=== PATIENT | female | born 1995 | race Caucasian/White ===

== ENCOUNTER 2018-08-10 08:39 | Emergency (ER) | payer MEDICAID ==
[2018-08-10] MEDS ORDERED: Cephalexin 500 MG Cap PO ONE (09:09)
--- NOTE | 2018-08-10 09:14 | EDM.PDOC ---
ED HPI GENERAL MEDICAL PROBLEM - General Chief Complaint: Bite:Animal, Insect Stated Complaint: BEE STING Time Seen by Provider: 08/10/18 09:09 Source of Information: Reports: Patient History Limitations: Reports: No Limitations - History of Present Illness INITIAL COMMENTS - FREE TEXT/NARRATIVE: Patient was stung by a wasp on left upper arm yesterday morning, redness has expanded today. Area is painful, not pruritic. Has been taking Benadryl. Currently 12 weeks . Denies fever. Onset Date: 08/09/18 Location: Reports: Upper Extremity, Left Quality: Reports: Ache Severity: Moderate Associated Symptoms: Reports: Headaches - Related Data Allergies Allergy/AdvReac Type Severity Reaction Status Date / Time No Known Allergies Allergy Verified 08/10/18 08:53 Home Meds: Home Meds Cephalexin [Keflex] 500 mg PO QID #40 capsule 08/10/18 [Rx] [id number]/Iron Fumarate/FA/DSS [ 19 Tablet] 1 tab PO DAILY 08/10/18 [ History] Past Medical History - Past Health History Medical/Surgical History: Denies Medical/Surgical History Social & Family History - Family History Family Medical History: Noncontributory - Tobacco Use Smoking Status *Q: Current Every Day Smoker Tobacco Use Within Last Twelve Months: Cigarettes Years of Tobacco use: 5 Packs/Tins Daily: 0.5 - Caffeine Use Caffeine Use: Reports: Soda - Recreational Drug Use Recreational Drug Use: No ED ROS GENERAL - Review of Systems Review Of Systems: ROS reveals no pertinent complaints other than HPI. ED EXAM, ANIMAL BITE - Physical Exam Exam: See Below Exam Limited By: No Limitations General Appearance: Alert, WD/WN, No Apparent Distress Ears: Normal External Exam Nose: Normal Inspection Throat/Mouth: No Airway Compromise Head: Atraumatic Neck: Full Range of Motion Respiratory/Chest: No Respiratory Distress Peripheral Pulses: 2+: Radial (L) Extremities: Normal Range of Motion, Other (erythema, induration, warmth and tenderness to left upper arm, no fluctuance) Neurological: Alert, No Motor/Sensory Deficits Psychiatric: Normal Affect, Normal Mood Course - Vital Signs Last Recorded V/S: Last Vital Signs Temp 36.7 C 08/10/18 08:45 Pulse 80 08/10/18 08:45 Resp 18 08/10/18 08:45 BP 111/65 08/10/18 08:45 Pulse Ox 98 08/10/18 08:45 - Orders/Labs/Meds Orders: Active Orders 24 hr Category Date Time Status cephALEXin [Keflex] Med 08/10/18 09:09 Once 500 mg PO ONETIME ONE Departure - Departure Time of Disposition: 09:14 Disposition: Home, Self-Care 01 Condition: Good Clinical Impression: Cellulitis Qualifiers: Site of cellulitis: extremity Site of cellulitis of extremity: upper extremity Laterality: left Qualified Code(s): L03.114 - Cellulitis of left upper limb Wasp sting Qualifiers: Encounter type: initial encounter Injury intent: accidental or unintentional Qualified Code(s): T63.461A - Toxic effect of venom of wasps, accidental ( unintentional), initial encounter - Discharge Information *PRESCRIPTION DRUG MONITORING PROGRAM REVIEWED*: No *COPY OF PRESCRIPTION DRUG MONITORING REPORT IN PATIENT MALIK: Not Applicable Prescriptions: Cephalexin [Keflex] 500 mg PO QID #40 capsule Instructions: Cellulitis, Adult, [id number], Bee, Wasp, or Hornet Sting, Adult Additional Instructions: Fill prescription for Keflex and take as directed. Take OTC Tylenol and Benadryl as needed. Follow up with your primary physician in 2 days if symptoms don't improve. Return to the ER if symptoms worsen. - My Orders Last 24 Hours: My Active Orders 08/10/18 09:09 cephALEXin [Keflex] 500 mg PO ONETIME ONE - Assessment/Plan Last 24 Hours: My Active Orders 08/10/18 09:09 cephALEXin [Keflex] 500 mg PO ONETIME ONE
== END 2018-08-10 09:31 | disposition home or self-care (01) ==
LOC: FB.ED 08:39
DX: T63.461A Toxic effect of venom of wasps, accidental (unintentional), initial encounter (principal); L03.114 Cellulitis of left upper limb; F17.210 Nicotine dependence, cigarettes, uncomplicated
CPT/HCPCS: 99281; A9270; 99284

== ENCOUNTER 2018-08-10 14:23 | Emergency (ER) | payer MEDICAID ==
[2018-08-10] MEDS ORDERED: cefTRIAXone 1,000 MG VIAL IVPUSH ONE (14:35)
--- NOTE | 2018-08-10 14:40 | EDM.PDOC ---
ED HPI GENERAL MEDICAL PROBLEM - General Chief Complaint: Skin Complaint Stated Complaint: reaction Time Seen by Provider: 08/10/18 14:36 Source of Information: Reports: Patient History Limitations: Reports: No Limitations - History of Present Illness INITIAL COMMENTS - FREE TEXT/NARRATIVE: Patient sustained a wasp sting to DEIRDRE yesterday, developed a painful rash which has continued to enlarge. She was treated in the ED this morning, rash has worsened since then and now having pain to left shoulder and numbness overlying rash. Denies fever. Currently 12 weeks . Duration: Day(s): (2) Location: Reports: Upper Extremity, Left Severity: Moderate left inner arm Pain Score (Numeric/FACES): 5 - Related Data Allergies Allergy/AdvReac Type Severity Reaction Status Date / Time No Known Allergies Allergy Verified 08/10/18 15:16 Home Meds: Home Meds Cephalexin [Keflex] 500 mg PO QID #40 capsule 08/10/18 [Rx] [id number]/Iron Fumarate/FA/DSS [ 19 Tablet] 1 tab PO DAILY 08/10/18 [ History] Past Medical History - Past Health History Medical/Surgical History: Denies Medical/Surgical History Social & Family History - Family History Family Medical History: Noncontributory - Tobacco Use Smoking Status *Q: Current Every Day Smoker Tobacco Use Within Last Twelve Months: Cigarettes - Caffeine Use Caffeine Use: Reports: Soda ED ROS GENERAL - Review of Systems Review Of Systems: See Below ED EXAM, SKIN/RASH Exam: See Below Exam Limited By: No Limitations General Appearance: Alert, WD/WN, No Apparent Distress Ears: Normal External Exam Nose: Normal Inspection Throat/Mouth: No Airway Compromise Head: Atraumatic, Normocephalic Neck: Full Range of Motion Respiratory/Chest: No Respiratory Distress, Lungs Clear Cardiovascular: Regular Rate, Rhythm, No Murmur Peripheral Pulses: 2+: Radial (L) Extremities: Normal Range of Motion, Other (Enlarging area of erythema and induration to left upper arm w/o fluctuance) Neurological: Alert, Oriented, Normal Cognition, Other (decreased sensation light touch overlying LUE rash, motor intact) Skin: Other (as above) Course - Orders/Labs/Meds Orders: Active Orders 24 hr Category Date Time Status Sodium Chloride 0.9% [Saline Flush] Med 08/10/18 14:34 Active 10 ml FLUSH ASDIRECTED PRN Saline Lock Insert [OM.PC] Routine Oth 08/10/18 14:34 Ordered Medication Orders Sodium Chloride (Saline Flush) 10 ml FLUSH ASDIRECTED PRN PRN Reason: Keep Vein Open Last Admin: 08/10/18 15:01 Dose: 10 ml Admin: 08/10/18 14:50 Dose: 10 ml Labs: Laboratory Tests 08/10/18 08/10/18 08/10/18 Range/Units 14:55 14:55 14:55 WBC 11.4 (4.5-12.0) X10-3/uL RBC 3.90 (3.23-5.20) x10(6)uL Hgb 12.9 (11.5-15.5) g/dL Hct 36.6 (30.0-51.3) % MCV 93.7 (80-96) fL MCH 33.0 (27.7-33.6) pg MCHC 35.2 (32.2-35.4) g/dL RDW 12.6 (11.5-15.5) % Plt Count 303 (125-369) X10(3)uL MPV 8.9 (7.4-10.4) fL Neut % (Auto) 66.3 (46-82) % Lymph % (Auto) 25.3 (13-37) % [place] % (Auto) 5.7 (4-12) % Eos % (Auto) 2 (1.0-5.0) % Baso % (Auto) 0 (0-2) % Neut # (Auto) 7.6 (1.6-8.3) # Lymph # (Auto) 2.9 (0.6-5.0) # [place] # (Auto) 0.6 (0.0-1.3) # Eos # (Auto) 0.3 (0.0-0.8) # Baso # (Auto) 0.0 (0.0-0.2) # Sodium 136 (135-145) mmol/L Potassium 3.7 (3.5-5.3) mmol/L Chloride 101 (100-110) mmol/L Carbon Dioxide 24 (21-32) mmol/L BUN 7 (7-18) mg/dL Creatinine 0.5 L (0.55-1.02) mg/dL Est Cr Clr Drug Dosing TNP Estimated GFR (MDRD) > 60 (>60) BUN/Creatinine Ratio 14.0 (9-20) Glucose 84 (80-116) mg/dL Calcium 8.4 L (8.6-10.2) mg/dL Total Bilirubin 0.2 (0.1-1.3) mg/dL AST 12 (5-25) IU/L ALT 18 (12-36) U/L Alkaline Phosphatase 67 (56-112) IU/L C-Reactive Protein 0.4 L (0.5-0.9) mg/dL Total Protein 7.1 (6.0-8.0) g/dL Albumin 3.4 L (3.5-5.2) g/dL Globulin 3.7 g/dL Albumin/Globulin Ratio 0.9 Meds: Medications Generic Name Dose Route Start Last Admin Trade Name Freq PRN Reason Stop Dose Admin Sodium Chloride 10 ml 08/10/18 14:34 08/10/18 15:01 Saline Flush FLUSH 10 ml ASDIRECTED PRN Administration Keep Vein Open Discontinued Medications Generic Name Dose Route Start Last Admin Trade Name Freq PRN Reason Stop Dose Admin Ceftriaxone Sodium 1,000 mg 08/10/18 14:35 08/10/18 14:54 Rocephin IVPUSH 08/10/18 14:36 1,000 mg ONETIME ONE Administration - Re-Assessments/Exams Free Text/Narrative Re-Assessment/Exam: 08/10/18 14:53 CBC and CRP normal. Etiology of rash likely due large local reaction to wasp sting and less likely cellulitis. Departure - Departure Time of Disposition: 15:57 Disposition: Home, Self-Care 01 Condition: Good Clinical Impression: Wasp sting Qualifiers: Encounter type: initial encounter Injury intent: accidental or unintentional Qualified Code(s): T63.461A - Toxic effect of venom of wasps, accidental ( unintentional), initial encounter Cellulitis Qualifiers: Site of cellulitis: extremity Site of cellulitis of extremity: upper extremity Laterality: left Qualified Code(s): L03.114 - Cellulitis of left upper limb - Discharge Information *PRESCRIPTION DRUG MONITORING PROGRAM REVIEWED*: No *COPY OF PRESCRIPTION DRUG MONITORING REPORT IN PATIENT MALIK: Not Applicable Instructions: Cellulitis, Adult, Bee, Wasp, or Hornet Sting, Adult Referrals: Jeffrey Martinez MD [Primary Care Provider] - Forms: ED Department Discharge Additional Instructions: Continue Keflex as prescribed. Take OTC Tylenol or Benadryl as needed. Follow up with your primary physician 2 days. Return to the ER as needed. - My Orders Last 24 Hours: My Active Orders 08/10/18 14:34 Sodium Chloride 0.9% [Saline Flush] 10 ml FLUSH ASDIRECTED PRN Saline Lock Insert [OM.PC] Routine - Assessment/Plan Last 24 Hours: My Active Orders 08/10/18 14:34 Sodium Chloride 0.9% [Saline Flush] 10 ml FLUSH ASDIRECTED PRN Saline Lock Insert [OM.PC] Routine
[2018-08-10] MEDS: Sodium Chloride 0.9% 10 ML Syringe FLUSH PRN ×2 (14:50→15:01)
== END 2018-08-10 16:12 | disposition home or self-care (01) ==
LOC: FB.ED 14:23
DX: O9A.211 Injury, poisoning and certain other consequences of external causes complicating pregnancy, first trimester (principal); T63.461A Toxic effect of venom of wasps, accidental (unintentional), initial encounter; L03.114 Cellulitis of left upper limb; F17.210 Nicotine dependence, cigarettes, uncomplicated; Z3A.12 12 weeks gestation of pregnancy
CPT/HCPCS: 36415; 80053; 85025; 86140; 96374; 99283; J0696; J7050

== ENCOUNTER 2020-04-13 09:52 | Emergency (ER) | payer MEDICAID, SELFPAY ==
--- NOTE | 2020-04-13 10:18 | EDM.PDOC ---
ED HPI GENERAL MEDICAL PROBLEM - General Stated Complaint: INFECTION OF TEETH Time Seen by Provider: 04/13/20 10:15 Source of Information: Reports: Patient History Limitations: Reports: No Limitations - History of Present Illness INITIAL COMMENTS - FREE TEXT/NARRATIVE: 24-year-old female who reports that for the past 2 weeks she has had pain in multiple teeth on both the right and the left side. This pain has gotten progressively worse with time and now she finds it difficult even to drink cold liquids or to chew because of the pain in both the left upper and left lower and the right lower teeth. She also has noticed some swelling in the area around the teeth. She rates pain as a 10/10. It is sharp and throbbing-type pain. There is no radiation of the pain. She also has had nausea with vomiting 2 today. She has been able to drink liquids. She is 27 weeks now and reports no vaginal bleeding or discharge. She has had feelings of good movement. No abdominal pain. No trouble breathing. There are no other associated signs or symptoms. There are no other modifying factors. Onset: Other (2 weeks) Duration: Getting Worse Location: Reports: Face (Dental pain) Quality: Reports: Sharp, Throbbing Severity: Severe Improves with: Reports: None Worsens with: Reports: Other (Cold water or air hitting the teeth. 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 (see below) (Nothing) - Related Data Allergies Allergy/AdvReac Type Severity Reaction Status Date / Time Penicillins Allergy Hives Verified 04/13/20 10:19 Home Meds: Home Meds Prenat 115/Iron Fum/Folic/Dss [ 19 Tablet] 1 tab PO DAILY 08/10/18 [ History] Albuterol [Ventolin HFA] 2 puff .XX DAILY 04/13/20 [History] Promethazine [Phenergan] 25 mg PO Q6H PRN #16 tab 04/13/20 [Rx] cephALEXin [Keflex] 500 mg PO QID 10 Days #40 cap 04/13/20 [Rx] Past Medical History Respiratory History: Reports: Asthma CAD 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: : 6 Para: 1 (3 miscarriages and one stillbirth at 27 weeks gestation) - Past Surgical History Female Surgical History: Reports: Section, D&C Social & Family History - Tobacco Use Smoking Status *Q: Current Every Day Smoker - Caffeine Use Caffeine Use: Reports: Soda - Alcohol Use Alcohol Use History: No - Living Situation & Occupation Living situation: Reports: Other (She just recently moved here from [place].) ED ROS ENT - Review of Systems Review Of Systems: See Below Constitutional: Reports: No Symptoms HEENT: Reports: Dental Pain Respiratory: Reports: No Symptoms Cardiovascular: Reports: No Symptoms GI/Abdominal: Reports: Nausea, Vomiting Musculoskeletal: Reports: No Symptoms Skin: Reports: No Symptoms Neurological: Reports: No Symptoms Psychiatric: Reports: No Symptoms Hematologic/Lymphatic: Reports: No Symptoms Immunologic: Reports: No Symptoms ED EXAM, ENT - Physical Exam Exam: See Below Exam Limited By: No Limitations General Appearance: Alert, WD/WN, Mild Distress (Appears in some pain) Eye Exam: Bilateral Eye: EOMI, Normal Inspection, PERRL Ears: Normal External Exam, Hearing Grossly Normal Nose: Normal Inspection, Normal Mucousa, No Blood Mouth/Throat: Dental Pain, Dental Tenderness, Gum Swelling (No pointing abscess) , Other (Moist membranes) Head: Atraumatic, Normocephalic Neck: Normal Inspection, Supple, Non-Tender, Full Range of Motion Respiratory/Chest: No Respiratory Distress, Lungs Clear, Normal Breath Sounds, No Accessory Muscle Use, Chest Non-Tender Cardiovascular: Normal Peripheral Pulses, No Murmur, Tachycardia GI/Abdominal: Normal Bowel Sounds, Soft, Non-Tender, Other (Gravid with no uterine tenderness.) Back: Normal Inspection Extremities: Normal Inspection, Normal Range of Motion, Non-Tender, No Pedal Edema, Normal Capillary Refill Neurological: Alert, Oriented, CN II-XII Intact, Normal Cognition, No Motor/ Sensory Deficits Psychiatric: Normal Affect Skin: Warm, Dry, Intact, Normal Color, No Rash Course - Vital Signs Last Recorded V/S: Last Vital Signs Temp 36.6 C 04/13/20 09:55 Pulse 110 H 04/13/20 09:55 Resp 20 04/13/20 09:55 BP 108/53 L 04/13/20 09:55 Pulse Ox 99 04/13/20 09:55 - Re-Assessments/Exams Free Text/Narrative Re-Assessment/Exam: 04/13/20 10:30: Patient with gingival swelling and carious dentition with probable dental abscess. I will place the patient on Keflex for treatment of her dental infection (she has had this medication before for a dental infection and had no problems taking it). She has been urged to see a dentist. Departure - Departure Time of Disposition: 10:37 Disposition: Home, Self-Care 01 Condition: Good Clinical Impression: Pain, dental, Dental caries, Dental infection - Discharge Information Prescriptions: cephALEXin [Keflex] 500 mg PO QID 10 Days #40 cap Promethazine [Phenergan] 25 mg PO Q6H PRN #16 tab PRN Reason: Nausea/Vomiting Instructions: Dental Abscess, [id number] Referrals: PCP,Not In Area [Primary Care Provider] - Additional Instructions: You appear to have a dental infection. I did not see a definite pointing abscess but there could be a dental abscess associated with one of the teeth that are painful. Drink plenty of fluids. You may take Tylenol 1000 mg by mouth every 6 hours as needed for pain. Medication as prescribed (Keflex 500 mg, promethazine 25 mg). Follow-up with a dentist as soon as you can arrange. The emergency department for inability to swallow, trouble breathing, high fever or any other concerning sign or symptom. Sepsis Event Note - Focused Exam Vital Signs: Vital Signs Temp Pulse Resp BP Pulse Ox 04/13/20 09:55 36.6 C 110 H 20 108/53 L 99 Date Exam was Performed: 04/13/20 Time Exam was Performed: 10:27
== END 2020-04-13 11:10 | disposition home or self-care (01) ==
LOC: FB.ED 09:52
DX: O99.612 Diseases of the digestive system complicating pregnancy, second trimester (principal); K04.7 Periapical abscess without sinus; K02.9 Dental caries, unspecified; O99.512 Diseases of the respiratory system complicating pregnancy, second trimester; O99.332 Smoking (tobacco) complicating pregnancy, second trimester; J45.909 Unspecified asthma, uncomplicated; F17.200 Nicotine dependence, unspecified, uncomplicated; Z88.0 Allergy status to penicillin; Z79.899 Other long term (current) drug therapy; Z3A.27 27 weeks gestation of pregnancy
CPT/HCPCS: 99282

== ENCOUNTER 2020-05-16 03:19 | Emergency (ER) | payer MEDICAID ==
--- NOTE | 2020-05-16 03:35 | EDM.PDOC ---
ED HPI GENERAL MEDICAL PROBLEM - General Stated Complaint: CONTRACTIONS Time Seen by Provider: 05/16/20 03:30 Source of Information: Reports: Patient History Limitations: Reports: No Limitations - History of Present Illness INITIAL COMMENTS - FREE TEXT/NARRATIVE: Gertrudis was brought in by EMS for contractions,that started at about 230 am. They are mildly painful,and irregular. She was scared to travel to [facility] by herself. No vaginal bleeding or discharge.She is at 34 weeks gestation Upper Abdomen Pain Score (Numeric/FACES): 4 - Related Data Allergies Allergy/AdvReac Type Severity Reaction Status Date / Time Penicillins Allergy Hives Verified 04/13/20 10:19 Home Meds: Home Meds Prenat 115/Iron Fum/Folic/Dss [ 19 Tablet] 1 tab PO DAILY 08/10/18 [History] Albuterol [Ventolin HFA] 2 puff .XX DAILY 04/13/20 [History] Promethazine [Phenergan] 25 mg PO Q6H PRN #16 tab 04/13/20 [Rx] cephALEXin [Keflex] 500 mg PO QID 10 Days #40 cap 04/13/20 [Rx] Past Medical History - Past Health History Medical/Surgical History: Denies Medical/Surgical History Respiratory History: Reports: Asthma 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 ED EXAM - Physical Exam Exam: See Below Exam Limited By: No Limitations General Appearance: Alert, No Apparent Distress Ears: Normal External Exam Nose: Normal Inspection Head: Atraumatic GI/Abdominal Exam: Normal Bowel Sounds, Soft Fundal Height In cm: 34 Course - Vital Signs Last Recorded V/S: Last Vital Signs Temp 97.0 F 05/16/20 03:29 Pulse 92 05/16/20 03:29 Resp 18 05/16/20 03:29 BP 115/71 05/16/20 03:29 Pulse Ox 99 05/16/20 03:29 Departure - Departure Time of Disposition: 01:30 Disposition: Home, Self-Care 01 Condition: Good Clinical Impression: 34 weeks gestation of - Discharge Information Instructions: Rahatignacia Barrett Contractions Referrals: Kunal Damon MD [Primary Care Provider] - Forms: ED Department Discharge - Problem List & Annotations (1) 34 weeks gestation of SNOMED Code(s): 14986494 Code(s): Z3A.34 - 34 WEEKS GESTATION OF Status: Acute - Problem List Review Problem List Initiated/Reviewed/Updated: Yes - Assessment/Plan Plan: She is comfortable. No contractions on going. I did not feel it is necessary for a vaginal exam. I discharged her to to go home. She may present to Naresh Olivo at her convenience.
== END 2020-05-16 03:46 | disposition home or self-care (01) ==
LOC: FB.ED 03:19
DX: O62.9 Abnormality of forces of labor, unspecified (principal); O99.513 Diseases of the respiratory system complicating pregnancy, third trimester; J45.909 Unspecified asthma, uncomplicated; Z88.0 Allergy status to penicillin; Z3A.34 34 weeks gestation of pregnancy
CPT/HCPCS: 99284

== ENCOUNTER 2020-07-14 19:26 | Emergency (ER) | payer MEDICAID ==
[2020-07-14] MEDS ORDERED: Cephalexin 500 MG Cap PO ONE (19:54)
--- NOTE | 2020-07-14 19:57 | EDM.PDOC ---
ED HPI GENERAL MEDICAL PROBLEM - General Chief Complaint: Skin Complaint Stated Complaint: POST INFECTION Time Seen by Provider: 07/14/20 19:45 Source of Information: Reports: Patient History Limitations: Reports: No Limitations - History of Present Illness INITIAL COMMENTS - FREE TEXT/NARRATIVE: Patient presented to the ED because of redness,pain over the incision site. She had a 3 weeks ago. there is no fever/chills or any vaginal discharge. 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 Other Musculoskeletal History: SPINE FRACTURE - Past Surgical History Female Surgical History: Reports: Section, D&C Social & Family History - Family History Family Medical History: Noncontributory - Tobacco Use Smoking Status *Q: Former Smoker Used Tobacco, but Quit: Yes Month/Year Tobacco Last Used: 2019 - Caffeine Use Caffeine Use: Reports: None - Recreational Drug Use Recreational Drug Use: No - Living Situation & Occupation Living situation: Reports: Other (She just recently moved here from [place].) ED ROS GENERAL - Review of Systems Review Of Systems: See Below Constitutional: Reports: No Symptoms HEENT: Reports: No Symptoms Respiratory: Reports: No Symptoms Cardiovascular: Reports: No Symptoms Endocrine: Reports: No Symptoms GI/Abdominal: Reports: No Symptoms : Reports: No Symptoms Musculoskeletal: Reports: No Symptoms Skin: Reports: Erythema Neurological: Reports: No Symptoms Psychiatric: Reports: No Symptoms ED EXAM, SKIN/RASH Exam: See Below Exam Limited By: No Limitations General Appearance: Alert, No Apparent Distress Ears: Normal External Exam, Normal Canal Nose: Normal Inspection, Normal Mucosa Throat/Mouth: Normal Inspection, Normal Lips, Normal Teeth Head: Atraumatic, Normocephalic Neck: Normal Inspection, Supple, Non-Tender Respiratory/Chest: No Respiratory Distress, Lungs Clear, Normal Breath Sounds Cardiovascular: Normal Peripheral Pulses, Regular Rate, Rhythm, No Edema GI/Abdominal: Normal Bowel Sounds, Soft, Non-Tender, No Organomegaly Back Exam: Normal Inspection, Full Range of Motion Extremities: Normal Inspection, Normal Range of Motion Skin: Warm, Erythema Course - Vital Signs Text/Narrative:: keflex 500 mg po x1 Last Recorded V/S: Last Vital Signs Temp 36.7 C 07/14/20 19:44 Pulse 128 H 07/14/20 19:44 Resp 16 07/14/20 19:44 BP 121/79 07/14/20 19:44 Pulse Ox 99 07/14/20 19:44 - Orders/Labs/Meds Meds: Medications Discontinued Medications Generic Name Dose Route Start Last Admin Trade Name Freq PRN Reason Stop Dose Admin Cephalexin 500 mg 07/14/20 19:54 07/14/20 20:00 Keflex PO 07/14/20 19:55 500 mg ONETIME ONE Administration Departure - Departure Time of Disposition: 19:55 Disposition: Home, Self-Care 01 Condition: Good Clinical Impression: Cellulitis - Discharge Information Prescriptions: cephALEXin [Keflex] 500 mg PO Q8H #30 cap Instructions: Cellulitis, Adult Referrals: Kunal Damon MD [Primary Care Provider] - Forms: ED Department Discharge Additional Instructions: Please read discharge instructions on cellulitis Take keflex 500 mg 3 times daily for 10 days Follow up as needed Sepsis Event Note (ED) - Evaluation Sepsis Screening Result: No Definite Risk - Focused Exam Vital Signs: Vital Signs Temp Pulse Resp BP Pulse Ox 07/14/20 19:44 36.7 C 128 H 16 121/79 99
== END 2020-07-14 20:12 | disposition home or self-care (01) ==
LOC: FB.ED 19:26
DX: O86.01 Infection of obstetric surgical wound, superficial incisional site (principal); L03.311 Cellulitis of abdominal wall; O99.53 Diseases of the respiratory system complicating the puerperium; J45.909 Unspecified asthma, uncomplicated; Z87.891 Personal history of nicotine dependence; Z88.0 Allergy status to penicillin; Z79.899 Other long term (current) drug therapy
CPT/HCPCS: 99282; A9270; 99283

== ENCOUNTER 2021-05-12 10:00 | Emergency (ER) | payer MEDICAID, OTHER ==
[2021-05-12] MEDS ORDERED: Lidocaine 2% Viscous Solution 15 ML Cup PO STA (11:17)
--- NOTE | 2021-05-12 11:46 | EDM.PDOC ---
ED HPI GENERAL MEDICAL PROBLEM - General Chief Complaint: ENT Problem Stated Complaint: RIGHT SIDED MOUTH PAIN Time Seen by Provider: 05/12/21 11:10 Source of Information: Reports: Patient History Limitations: Reports: No Limitations - History of Present Illness INITIAL COMMENTS - FREE TEXT/NARRATIVE: Patient presented to the ED because of RU molar pain for 2 days. she took ubu profen 800 mg without any relief. She also noticed swelling of her gums and cheek. 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 Other Musculoskeletal History: SPINE FRACTURE - Past Surgical History Female Surgical History: Reports: Section, D&C Social & Family History - Family History Family Medical History: No Pertinent Family History - Caffeine Use Caffeine Use: Reports: None - Living Situation & Occupation Living situation: Reports: Other (She just recently moved here from [place].) ED ROS ENT - Review of Systems Review Of Systems: See Below Constitutional: Reports: No Symptoms HEENT: Reports: Dental Pain Respiratory: Reports: No Symptoms Cardiovascular: Reports: No Symptoms Endocrine: Reports: No Symptoms GI/Abdominal: Reports: No Symptoms : Reports: No Symptoms Musculoskeletal: Reports: No Symptoms Skin: Reports: No Symptoms Neurological: Reports: No Symptoms Psychiatric: Reports: No Symptoms ED EXAM, ENT - Physical Exam Exam: See Below Exam Limited By: No Limitations General Appearance: Alert, No Apparent Distress Eye Exam: Bilateral Eye: PERRL Ears: Normal External Exam, Normal Canal Nose: Normal Inspection, Normal Mucousa, No Blood Mouth/Throat: Normal Inspection, Normal Lips, Normal Oropharynx, Dental Pain, Gum Swelling, Other (multiple dental caries) Head: Atraumatic, Normocephalic Neck: Normal Inspection, Supple, Non-Tender Respiratory/Chest: No Respiratory Distress, Lungs Clear, Normal Breath Sounds, No Accessory Muscle Use, Chest Non-Tender Cardiovascular: Normal Peripheral Pulses, Regular Rate, Rhythm, No Edema, No Gallop, No JVD, No Murmur GI/Abdominal: Normal Bowel Sounds, Soft, Non-Tender, No Organomegaly, No Distention, No Abnormal Bruit, No Mass Back: Normal Inspection, Full Range of Motion Extremities: Normal Inspection, Normal Range of Motion, Non-Tender, No Pedal Edema, Normal Capillary Refill Neurological: Alert, Oriented, CN II-XII Intact, Normal Cognition, Normal Gait, Normal Reflexes, No Motor/Sensory Deficits Course - Vital Signs Text/Narrative:: Viscous lidocaine with relief of her pain Last Recorded V/S: Last Vital Signs Temp 37.1 C 05/12/21 11:03 Pulse 78 05/12/21 11:03 Resp 20 05/12/21 11:03 BP 158/80 H 05/12/21 11:03 Pulse Ox 99 05/12/21 11:03 - Orders/Labs/Meds Meds: Medications Discontinued Medications Generic Name Dose Route Start Last Admin Trade Name Tova PRN Reason Stop Dose Admin Lidocaine HCl 15 ml 05/12/21 11:17 05/12/21 11:35 Lidocaine 2% Viscous Solution 15 Ml Cup PO 05/12/21 11:18 15 ml NOW STA Administration Departure - Departure Time of Disposition: 00:00 Disposition: Home, Self-Care 01 Condition: Good Clinical Impression: Pain due to dental caries, Dental infection - Discharge Information Prescriptions: Clindamycin HCl 450 mg PO TID #90 capsule Lidocaine 2% [Xylocaine 2% Viscous] 2 ml PO ASDIRECTED PRN #60 ml PRN Reason: Pain Instructions: Dental Abscess, [id number], Benzocaine mouth gel, ointment, solution, or dental paste Referrals: Kunal Damon MD [Primary Care Provider] - Forms: ED Department Discharge Additional Instructions: Please read discharge instructions on dental pain and infection Take ibuprofen 800 mg with tylenol 1000 mg every 8 hours as needed for pain. Take both at the same time for better pain relief Apply viscous lidocaine to areas that are hurting every 1-2 hours. Use it for moderate to severe pain Clinadmycin 450 mg 3 times daily for 10 days Follow up with your dentist [facility] Sepsis Event Note (ED) - Evaluation Sepsis Screening Result: No Definite Risk - Focused Exam Vital Signs: Vital Signs Temp Pulse Resp BP Pulse Ox 05/12/21 11:03 37.1 C 78 20 158/80 H 99
== END 2021-05-12 12:15 | disposition home or self-care (01) ==
LOC: FB.ED 10:00
DX: K04.7 Periapical abscess without sinus (principal); K02.9 Dental caries, unspecified; Z88.0 Allergy status to penicillin
CPT/HCPCS: 99282; 99283; A9270-GY